=== PATIENT | male | born 1965 | race Native Hawaiian/Other Pacific Islander ===

== ENCOUNTER 2022-09-10 10:37 | Outpatient (CLI) | payer BC | END 2022-09-10 18:58 | disposition home or self-care (01) | LOC: CT 10:37 | PROVIDERS: ATTEND Internal Medicine | DX: R19.09 Other intra-abdominal and pelvic swelling, mass and lump (principal) | CPT/HCPCS: 36415; 82565; 84520; Q9963 ==